=== PATIENT | male | born 1980 | race Caucasian/White ===

== ENCOUNTER 2022-02-20 10:05 | Emergency (ER) | payer BC ==
[2022-02-20] MEDS ORDERED: Lidocaine 2% Viscous Solution 15 ML UD PO ONE (10:18)
[2022-02-20] MEDS ORDERED: Benzocaine 20% Topical Spray UD MUCMEM ONE (10:18)
[2022-02-20] MEDS ORDERED: Amoxicillin/Clavulanate K 875-125 MG Tab PO ONE (10:19)
[2022-02-20] MEDS ORDERED: Acetaminophen/HYDROcodone 325-5 MG Tab PO ONE (10:24)
== END 2022-02-20 10:44 | disposition home or self-care (01) ==
LOC: MW.ED 10:05
DX: K04.7 Periapical abscess without sinus (principal)
CPT/HCPCS: 99282; A9270